=== PATIENT | female | born 1955 | race Caucasian/White ===

== ENCOUNTER 2024-09-17 19:17 | Emergency (ER) | payer MEDICARE, MEDICAID ==
[~2024-09-17] VITALS: Ht 162.6 cm; Wt 54.5 kg
[2024-09-17 20:26] LABS: BILIRUBIN, URINE POSITIVE (negative); BLOOD/HGB, URINE NEGATIVE (Negative); KETONE, URINE SMALL (Negative); LEUK ESTERASE, URINE SMALL (negative); NITRITE, URINE POSITIVE (negative)
[2024-09-17] MEDS ORDERED: ALDACTONE25 MG PO (20:27)
[2024-09-17] MEDS ORDERED: CARAFATE1 GM PO (20:27)
[2024-09-17] MEDS ORDERED: PROTONIX40 M1 PO (20:27)
[2024-09-17] MEDS ORDERED: ONDANSETRON ODT8 MG PO (20:28)
[2024-09-17 20:31] LABS: EPITHELIAL CELLS, URINE SQUAMOUS 1+ /lpf (0-1+)
[2024-09-17] MEDS ORDERED: LASIX40 MG PO (20:31)
[2024-09-17 20:32] LABS: BACTERIA, URINE 1+ /hpf (negative); CASTS, URINE NONE SEEN \\lpf; COLLECTION TYPE, URINE CLEAN CATCH; CRYSTALS, URINE NONE SEEN (0-1+); RED BLOOD CELLS, URINE 0-1 /hpf (0-5); REFLEX CULTURE, URINE Yes (No); WHITE BLOOD CELLS, URINE >50 /HPF (0-5)
[2024-09-17] MEDS ORDERED: PYRIDIUM200 MG PO (21:33)
[2024-09-17] MEDS ORDERED: MACROBID 100 M100 MG PO (21:33)
[2024-09-17] MEDS ORDERED: NITROFURANTOIN MONOHYD MACROCR 100 MG HOME.PACK PO ONE (21:45)
[2024-09-17] MEDS ORDERED: PHENAZOPYRIDINE HCL 100 MG TAB PO ONE (21:45)
[2024-09-17 22:15] VITALS: BP 160/81
== END 2024-09-17 22:16 | disposition home or self-care (01) ==
LOC: ED 19:17
PROVIDERS: Family Medicine
DX: N39.0 Urinary tract infection, site not specified (principal); N32.89 Other specified disorders of bladder; I10 Essential (primary) hypertension; Z79.899 Other long term (current) drug therapy
CPT/HCPCS: 81001; 87088; 99284